=== PATIENT | female | born 1985 | race Caucasian/White ===

== ENCOUNTER 2019-05-18 02:46 | Emergency (ER) | payer BC ==
[~2019-05-18] VITALS: Ht 175.3 cm; Wt 82.6 kg
[2019-05-18 03:00] VITALS: BP 126/89
--- NOTE | 2019-05-18 03:00 | NUR ---
ED Nurse Note: Patient walked in to ER due to low BS. Per patient her BS was 40 at home. Upon arrival patient's BS was 120. AAO x4, VSS at this time, skin is warm to touch. Patient presented anxious, crying. ER MD by bed side.
--- NOTE | 2019-05-18 03:06 | Emergency Room Report ---
History of Present Illness General Chief Complaint: Abnormal Labs Source: Patient Present Illness HPI This is a 33-year-old female with a history of reactive hypoglycemia. She is been having this since teenager. She presents with chief complaint of low blood sugar. She has an kay that monitor her blood glucose 24 hours a day on her smart phone. She said all day has been running low. When her blood sugar low she gets lightheaded and not thinking well. Usually she said her blood sugar gets low when she is stressed. She was at her boyfriend's house and did not have a glucometer to check her blood sugar. She came here because she was worried that her blood sugar is low. She denies any insulin intake or oral diabetic medication. Denies any nausea vomiting but denies any other complaint. When her smart phone indicate low, her blood sugar is less than 40. Cannot get it up by taking glucose and eating. Allergies: Uncoded Allergies: SULFA (Allergy, Unknown, 05/18/19) Patient History Past Medical History: see triage record, old chart reviewed Past Surgical History: none Pertinent Family History: none Social History: Denies: smoking Last Menstrual Period: 06/06/19 Now: No Immunizations: other Reviewed Nursing Documentation: PMH: Agreed; PSxH: Agreed Nursing Documentation-PMH Past Medical History: No History, Except For Review of Systems Eye: Denies: eye pain, blurred vision ENT: Denies: ear pain, nose congestion, throat swelling Respiratory: Denies: cough, shortness of breath Cardiovascular: Denies: chest pain, palpitations Gastrointestinal: Denies: abdominal pain, diarrhea, nausea, vomiting Musculoskeletal: Denies: back pain, joint pain Skin: Denies: rash Neurological: Reports: dizziness; Denies: headache, numbness Endocrine: Denies: increased thirst, increased urine Hematologic/Lymphatic: Denies: easy bruising All Other Systems: negative except mentioned in HPI Physical Exam Vital Signs Date Time Temp Pulse Resp B/P (MAP) Pulse Ox O2 Delivery O2 Flow Rate FiO2 05/18/19 02:50 98.1 80 22 126/89 (101) 99 Room Air Vitals normal Sp02 EP Interpretation: reviewed, normal General Appearance: well appearing, no apparent distress, alert Head: normocephalic, atraumatic Eyes: bilateral eye PERRL, bilateral eye EOMI ENT: hearing grossly normal, normal pharynx Neck: full range of motion, supple, no meningismus Respiratory: normal inspection, no respiratory distress Cardiovascular #1: no JVD Gastrointestinal: non-distended Musculoskeletal: back normal, gait/station normal, normal range of motion Neurologic: alert, oriented x3 Psychiatric: anxious Skin: warm/dry Medical Decision Making Diagnostic Impression: Primary Impression: Hypoglycemia ER Course Patient with reactive hypoglycemia. Her blood glucose on her Accu-Chek here is 120. On her phone indicate low. Patient has no symptoms of hypoglycemia. She is not diaphoretic. She is not altered mental status. Other than feeling anxious, she has no other symptoms of hypoglycemia. The blood work. Since her blood glucose is normal here, she wants to go home. Last Vital Signs Date Time Temp Pulse Resp B/P (MAP) Pulse Ox O2 Delivery O2 Flow Rate FiO2 05/18/19 03:00 98.1 22 126/89 99 Room Air 05/18/19 02:50 80 Status: improved Disposition: HOME, SELF-CARE Condition: Stable Additional Instructions: Check your sugar regularly. Follow-up with your doctor in 7 days. Return if worse. Tereso Alvarez MD May 18, 2019 03:06
[2019-05-18 03:09] VITALS: BP 126/89
--- NOTE | 2019-05-18 03:10 | NUR ---
ED Nurse Note: Pt cleared by health care Provider for discharge. DC instructions/prescription was given and explained to pt and verbalized understanding of teachings. All medical deviecs such as ID band removed. Pt is AAO x4, ambulatory and left with all personal belongings.
== END 2019-05-18 03:30 | disposition home or self-care (01) ==
LOC: EMR 03:12
DX: E16.2 Hypoglycemia, unspecified (principal); Z88.2 Allergy status to sulfonamides
CPT/HCPCS: 99281